=== PATIENT | male | born 1950 | race Caucasian/White ===

== ENCOUNTER 2021-11-21 16:11 | Emergency (ER) | payer OTHER ==
[~2021-11-21] VITALS: Ht 180.3 cm; Wt 83.0 kg
== END 2021-11-21 16:58 | disposition home or self-care (01) ==
LOC: ER 16:11
DX: N43.3 Hydrocele, unspecified (principal); N50.819 Testicular pain, unspecified; Z88.0 Allergy status to penicillin

== ENCOUNTER 2021-11-22 10:20 | Outpatient (CLI) | payer OTHER | END 2021-11-22 10:22 | disposition home or self-care (01) | LOC: SONOGRAMA 10:20 | DX: N50.819 Testicular pain, unspecified (principal) ==